=== PATIENT | female | born 1970 | race American Indian/Alaskan Native ===

== ENCOUNTER 2018-06-11 22:17 | Emergency (ER) | payer OTHER ==
[2018-06-11 22:25] VITALS: BP 122/84
[2018-06-11] MEDS ORDERED: BOOSTRIX IM ONE (22:28)
--- NOTE | 2018-06-11 22:28 | Emergency Department Report ---
Blank Doc - Documentation Documentation: This is a 47-year-old female that presents with right index finger from a knife while in the kitchen. Denies any other symptoms or complaints. Not UTD with tetanus. This initial assessment diagnostic orders/clinical plan/treatment(s) is/are subject to change based on patient's health status, clinical progression and re- assessment by fellow clinical providers in the ED. Further treatment and workup at subsequent clinical providers discretion. Patient/guardians urged not to elope from ED s their condition may be serious if not clinically assessed and managed. Initial orders include: 1-Patient sent to [facility] for further evaluation and treatment 2- Tetanus
[2018-06-12] MEDS ORDERED: XYLOCAINE 1% MPF 5 mL INFILTRATI ONE (02:26)
[2018-06-12] MEDS ORDERED: XYLOCAINE 1% MPF 5 mL ONE (02:30)
--- NOTE | 2018-06-12 04:03 | Emergency Department Report ---
ED Laceration HPI - HPI Chief Complaint: Wound/Laceration Stated Complaint: RT FINGER LAC Time Seen by Provider: 06/11/18 22:23 Location: Upper Extremity (a pneumonia laceration to the right finger while trying to open a brand-new clean knife sustained about 3-4 hours prior to arrival. The bleeding is controlled. Pain is mild and dull) Severity: mild Tetanus Status: Not up to Date Laceration Symptoms: Yes Pain ED Review of Systems ROS: Stated complaint: RT FINGER LAC Other details as noted in HPI Constitutional: denies: chills, fever Eyes: denies: eye pain, eye discharge, vision change ENT: denies: ear pain, throat pain Respiratory: denies: cough, shortness of breath, wheezing Cardiovascular: denies: chest pain, palpitations Endocrine: no symptoms reported Gastrointestinal: denies: abdominal pain, nausea, diarrhea Genitourinary: denies: urgency, dysuria, discharge Musculoskeletal: denies: back pain, joint swelling, arthralgia Skin: denies: rash, lesions Neurological: denies: headache, weakness, paresthesias Psychiatric: denies: anxiety, depression Hematological/Lymphatic: denies: easy bleeding, easy bruising ED Past Medical Hx - Past Medical History Previous Medical History?: No - Surgical History Past Surgical History?: No - Social History Smoking Status: Never Smoker Substance Use Type: None - Medications Home Medications: Home Medications Medication Instructions Recorded Confirmed Last Taken Type Chlorhexidine Gluconate 10 ml TP BID #250 liquid 06/12/18 Unknown Rx [Antiseptic Skin Cleanser] Laceration Physical Exam - Exam General: Vital signs noted. No distress. Alert and acting appropriately. Laceration Location: Upper Extremity (right index finger laceration to the proximal Bryce aspect, 1.5 cm in length.) Laceration Exam: Yes Normal Distal CMS, No Foreign Body, No Exposed Tendon, Vessel, or Nerve, No Tendon Injury ED Course Vital Signs 06/11/18 06/11/18 22:23 22:26 Temperature 98.0 F 98 F Pulse Rate 95 H 95 H Respiratory 20 16 Rate Blood Pressure 122/84 122/84 O2 Sat by Pulse 94 98 Oximetry - Laceration /Wound Repair Right Upper Finger Wound Location: upper extremity Wound's Depth, Shape: linear Betadine Prep?: Yes Anesthesia: 1% Lidocaine Wound Debrided: minimal Wound Repaired With: sutures Suture Size/Type: 5:0 Number of Sutures: 2 Sterile Dressing Applied?: Yes ED Medical Decision Making - Medical Decision Making Tetanus shot given Critical care attestation.: If time is entered above; I have spent that time in minutes in the direct care of this critically ill patient, excluding procedure time. ED Disposition Clinical Impression: Laceration Disposition: DC-01 TO HOME OR SELFCARE Is pt being admited?: No Does the pt Need Aspirin: No Condition: Stable Instructions: Laceration (ED) Prescriptions: Chlorhexidine Gluconate [Antiseptic Skin Cleanser] 10 ml TP BID #250 liquid [facility]: [facility] [place] [Primary Care Provider] - 3-5 Days KEREN SALAZAR MD [Emergency Provider] - 3-5 Days
== END 2018-06-12 04:30 | disposition home or self-care (01) ==
LOC: ED 22:17
DX: S61.210A Laceration without foreign body of right index finger without damage to nail, initial encounter (principal); W26.0XXA Contact with knife, initial encounter; Y93.89 Activity, other specified; Y92.89 Other specified places as the place of occurrence of the external cause; Y99.8 Other external cause status
CPT/HCPCS: 90471

== ENCOUNTER 2018-06-22 21:28 | Emergency (ER) | payer OTHER ==
[2018-06-22 21:38] VITALS: BP 147/91
--- NOTE | 2018-06-22 22:30 | Emergency Department Report ---
Chief Complaint: Extremity Injury, Upper Stated Complaint: RT INDEX FINGER SWOLLEN Time Seen by Provider: 06/22/18 22:24 - HPI History of Present Illness: Pt was evaluated in the ED on 06/12 for a laceration due to a knife and had two stitches to the palmar surface of the pointer finger of the right hand She states she has not had the sutures removed She says the right pointer finger has begun to feel erythematous and edematous over the last three days she denies any fever no pain with ROM of the joints, edema present to the proximal aspect of the right pointer finger, [address], no erythema or drainage present VSS, afebrile MSE complete - Exam Vital Signs: Vital Signs 06/22/18 21:36 Temperature 97.5 F L Pulse Rate 74 Respiratory 18 Rate Blood Pressure 147/91 O2 Sat by Pulse 99 Oximetry MSE screening note: Focused history and physical exam performed. Due to findings the following was ordered: cbc ED Disposition for MSE Condition: Stable
[2018-06-22 23:06] LABS: Basophils # (Auto) 0.1 K/mm3 (0.0-0.1); Eosinophils # (Auto) 0.3 K/mm3 (0.0-0.4); Eosinophils % (Auto) 4.5 % (0.0-4.3); Hematocrit 35.5 % (30.3-42.9); Hemoglobin 11.9 gm/dl (10.1-14.3); Lymphocytes # (Auto) 2.1 K/mm3 (1.2-5.4); Lymphocytes % (Auto) 34.1 % (13.4-35.0); Mean Corpuscular HGB Conc 34 % (30-34); Mean Corpuscular Volume 87 fl (79-97); Monocytes # (Auto) 0.4 K/mm3 (0.0-0.8); Monocytes % (Auto) 6.6 % (0.0-7.3); Platelet Count 270 K/mm3 (140-440); Red Blood Count 4.07 M/mm3 (3.65-5.03); Red Cell Distribution Width 14.5 % (13.2-15.2)
--- NOTE | 2018-06-22 23:22 | Emergency Department Report ---
Suture/Staple Removal - [facility] Chief Complaint: Extremity Injury, Upper Stated Complaint: RT INDEX FINGER SWOLLEN Time Seen by Provider: 06/22/18 22:24 When Sutures or [place] Placed: 8-10 Days Ago Wound Location: right indfex finger laceration repair, healing 2 sutures intact ED Review of Systems ROS: Stated complaint: RT INDEX FINGER SWOLLEN Other details as noted in HPI Constitutional: denies: chills, fever Eyes: denies: eye pain, eye discharge, vision change ENT: denies: ear pain, throat pain Respiratory: denies: cough, shortness of breath, wheezing Cardiovascular: denies: chest pain, palpitations Endocrine: no symptoms reported Gastrointestinal: denies: abdominal pain, nausea, diarrhea Genitourinary: denies: urgency, dysuria, discharge Musculoskeletal: denies: back pain, joint swelling, arthralgia Skin: other (healing right index finger .). denies: rash, lesions Neurological: denies: headache, weakness, paresthesias ED Past Medical Hx - Past Medical History Previous Medical History?: No - Surgical History Past Surgical History?: Yes Hx Appendectomy: Yes - Social History Smoking Status: Never Smoker Substance Use Type: None - Medications Home Medications: Home Medications Medication Instructions Recorded Confirmed Last Taken Type Chlorhexidine Gluconate 10 ml TP BID #250 liquid 06/12/18 Unknown Rx [Antiseptic Skin Cleanser] Suture Removal Exam - Exam General: Vital signs noted. No distress. Alert and acting appropriately. Wound: Yes Tenderness, No Pathologic Erythema, No Drainage, No Pus, No Wound Dehiscence Other Systems: All other systems reviewed and are unremarkable. ED Course Vital Signs 06/22/18 21:36 Temperature 97.5 F L Pulse Rate 74 Respiratory 18 Rate Blood Pressure 147/91 O2 Sat by Pulse 99 Oximetry - Procedure Description Procedures done: sutures x 2 removed intact no s/s of infection no drainage minimal pain no lesin rom inact. Transcribed By: CO. Dictated By: CRESENCIO IBARRA MD. Electronically Authenticated By: CRESENCIO IBARRA MD. Signed Date/Time: ED Recheck [facility] - Differential Diagnosis Suture/Staple Removal - Medical Decision Making sutures removed intct no symptoms of infection cms intact Critical care attestation.: If time is entered above; I have spent that time in minutes in the direct care of this critically ill patient, excluding procedure time. ED Disposition Clinical Impression: Visit for suture removal Disposition: DC-01 TO HOME OR SELFCARE Is pt being admited?: No Does the pt Need Aspirin: No Condition: Stable Referrals: PRIMARY CARE, [Primary Care Provider] - 3-5 Days Forms: Work/School Release Form(ED) Time of Disposition: 23:26
== END 2018-06-22 23:35 | disposition home or self-care (01) ==
LOC: ED 21:28
DX: S61.210D Laceration without foreign body of right index finger without damage to nail, subsequent encounter (principal); W45.8XXD Other foreign body or object entering through skin, subsequent encounter
CPT/HCPCS: 36415; 85025

== ENCOUNTER 2021-06-20 16:23 | Emergency (ER) | payer OTHER ==
[2021-06-20] MEDS ORDERED: KETOROLAC 30 MG/1 ML INJ IM ONE (16:52)
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
[2021-06-20 18:13] VITALS: BP 112/65
== END 2021-06-20 18:13 | disposition home or self-care (01) ==
LOC: ED 16:23
DX: M54.2 Cervicalgia (principal); M79.604 Pain in right leg; M79.602 Pain in left arm; M54.50 Low back pain, unspecified; V89.2XXA Person injured in unspecified motor-vehicle accident, traffic, initial encounter; Y93.89 Activity, other specified; Y92.89 Other specified places as the place of occurrence of the external cause; Y99.8 Other external cause status
CPT/HCPCS: 96372; 99282; J1885